=== PATIENT | female | born 1970 | race Caucasian/White ===

== ENCOUNTER 2018-07-15 18:39 | Emergency (ER) | payer MEDICAID ==
[~2018-07-15] VITALS: Ht 162.6 cm; Wt 76.7 kg
[2018-07-15 18:49] VITALS: Ht 162.6 cm; Wt 76.7 kg
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
[2018-07-15] MEDS ORDERED: ACETAMINOPHEN 325 MG TAB PO ONE (22:00)
[2018-07-15] MEDS ORDERED: HYDROCODONE/APAP (5/325) TAB PO ONE (22:00)
[2018-07-16] MEDS ORDERED: KETOROLAC 30 MG INJ IV STA (00:18)
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
--- NOTE | 2018-07-16 03:53 | EN ---
Date/Time of Note Date/Time of Note DATE: 07/16/18 TIME: 03:52 ER Progress Note Patient has been accepted at [facility] by ERIKA Lopez Jul 16, 2018 03:53
[2018-07-16 05:49] VITALS: BP 122/73; PULSE 80; RESP 16
== END 2018-07-16 05:59 | disposition short-term general hospital (02) ==
LOC: FTE 18:39 → E/R 07-16 05:59
DX: S02.31XA Fracture of orbital floor, right side, initial encounter for closed fracture (principal); S09.93XA Unspecified injury of face, initial encounter; S60.042A Contusion of left ring finger without damage to nail, initial encounter; V49.50XA Passenger injured in collision with unspecified motor vehicles in traffic accident, initial encounter
CPT/HCPCS: 36415; 70450; 70486; 72125; 73130; 80053; 81003; 81025; 83690; 85025; 85610; 85730; J1885; Z7502; Z7610